=== PATIENT | female | born 2000 | race African-American/Black ===

== ENCOUNTER 2024-12-04 11:35 | Emergency (ER) | payer OTHER, SELFPAY ==
[2024-12-04 12:11] VITALS: BP 115/62; PULSE 72; RESP 18; TEMP 37.2; O2SAT 100; BMI 28.4
--- NOTE | 2024-12-04 12:17 | DI.RAD.S_ITS ---
PROCEDURE: XR CLAVICLE LT INDICATIONS: fall/pain TECHNIQUE: 2 views of the clavicle were acquired. COMPARISON: None. FINDINGS: Bones: No fractures or dislocations. No suspicious bony lesions. Soft tissues: No suspicious soft tissue calcifications. IMPRESSION: No acute left clavicular fracture or dislocation. Dictated by: Roc Mccord M.D. on 12/04/2024 at 12:36 Approved by: Roc Mccord M.D. on 12/04/2024 at 12:38
--- NOTE | 2024-12-04 12:17 | DI.RAD.S_ITS ---
PROCEDURE: XR WRIST LT MIN 3V INDICATIONS: fall/pain TECHNIQUE: A total of 4 views of the wrist were acquired. COMPARISON: None. FINDINGS: Bones: No fractures or dislocations. No suspicious bony lesions. Soft tissues: No suspicious soft tissue calcifications. IMPRESSION: No acute bony abnormality. Dictated by: Jayant Riley M.D. on 12/04/2024 at 12:41 Approved by: Jayant Riley M.D. on 12/04/2024 at 12:41
--- NOTE | 2024-12-04 12:17 | DI.RAD.S_ITS ---
PROCEDURE: XR SHOULDER LT MIN 2V INDICATIONS: fall/pain TECHNIQUE: 3 views of the shoulder were acquired. COMPARISON: None. FINDINGS: Bones: No fractures or dislocations. No suspicious bony lesions. Visualized ribs appear intact. Soft tissues: No suspicious soft tissue calcifications. IMPRESSION: No acute left shoulder fracture or dislocation. Dictated by: Roc Mccord M.D. on 12/04/2024 at 12:38 Approved by: Roc Mccord M.D. on 12/04/2024 at 12:39
--- NOTE | 2024-12-04 14:33 | ED_ITS ---
HPI - Fall General Chief Complaint: Fall Stated Complaint: Fell down a hill Today Time Seen by Provider: 12/04/24 13:34 History of Present Illness HPI Narrative: Ms. Hanson is a pleasant 24-year-old female, active duty [place], who presents to the emergency department for left-sided body pain after she slipped while walking down a hill earlier today. Patient states she was walking [place] a [place] when she slipped falling somewhat backwards onto her left side. There was no head trauma or loss of consciousness. She has had some pain on left side of her body since then, most significantly her left shoulder and collarbone region in addition to her left wrist. As the day went on and she was walking she is noticing some soreness in her left ankle. No visual disturbance, LOC, nausea or vomiting. She is full range of motion and is ambulatory. No medications prior to arrival. Related Data Allergies Allergy/AdvReac Type Severity Reaction Status Date / Time No Known Drug Allergies Allergy Verified 12/04/24 12:11 Review of Systems Review of Systems ROS Unobtainable: All systems reviewed & are unremarkable except as noted in HPI and below Patient History Social History Smoking Status: Current every day smoker Smoking Status: Current every day smoker tobacco type: vaping Exam Narrative Exam Narrative: GENERAL: 24 year old patient appears stated age. Well-developed patient, in no acute distress. HEAD: Atraumatic. Normocephalic. EYES: PERRL. Extraocular motions intact. No scleral icterus. No injection or drainage. ENT: Nose without bleeding, purulent drainage. Throat without erythema, tonsillar hypertrophy or exudate. Airway patent. NECK: Trachea midline. Cervical ROM intact. CARDIOVASCULAR: Regular rate and rhythm. RESPIRATORY: ?Nonlabored respirations. ?Speaking in clear, full sentences. ?Clear to auscultation. Breath sounds equal bilaterally. No wheezes, rales, or rhonchi. ? GASTROINTESTINAL: Abdomen soft, non-tender, nondistended. EXTREMITIES: No edema. Tenderness to palpation of left AC joint region and left posterior scapula. Subjective pain with abduction of left shoulder. Reproducible pain with left empty can test. No focal tenderness to palpation of humerus, elbow, forearm, wrist, snuffbox. Strong radial pulses, sensation intact to light touch in distribution of median, radial, ulnar nerves bilaterally. No tenderness to palpation of left medial or lateral malleolus, no swelling or deformity of the ankle. BACK: Nontender without deformity or crepitance. No flank tenderness. NEURO: AOx3. ?Clear speech. ?Moves all 4 extremities appropriately. SKIN: No rash or erythema of visible areas Initial Vital Signs Initial Vital Signs: Vital Signs Temperature 99.0 F 12/04/24 12:11 Pulse Rate 72 12/04/24 12:11 Respiratory Rate 18 12/04/24 12:11 Blood Pressure 115/62 12/04/24 12:11 Pulse Oximetry 100 12/04/24 12:11 Oxygen Delivery Method Room Air 12/04/24 12:11 Course Orders Ordered: ED Orders 12/04/24 12:17 XR clavicle LT Stat XR shoulder LT min 2V Stat XR wrist LT min 3V Stat Discontinued Medications Acetaminophen (Acetaminophen 325 Mg Tablet) 975 mg PO NOW ONE Stop: 12/04/24 14:49 Last Admin: 12/04/24 15:15 Dose: 975 mg Documented By: EVAN Naproxen (Naproxen 250 Mg Tablet) 500 mg PO NOW ONE Stop: 12/04/24 14:49 Last Admin: 12/04/24 15:15 Dose: 500 mg Documented By: EVAN Vital Signs Vital signs: Vital Signs - 8 hr 12/04/24 12:11 12/04/24 15:33 Temperature 99.0 F Pulse Rate 72 69 Respiratory Rate 18 16 Blood Pressure 115/62 114/60 Pulse Oximetry 100 100 Oxygen Delivery Method Room Air Room Air MDM - Fall Medical Records Attestation: I reviewed the patient's medical records. Imaging Data Left Clavicle X-Ray: Radiologist's Impression: PROCEDURE: XR CLAVICLE LT INDICATIONS: fall/pain TECHNIQUE: 2 views of the clavicle were acquired. COMPARISON: None. FINDINGS: Bones: No fractures or dislocations. No suspicious bony lesions. Soft tissues: No suspicious soft tissue calcifications. IMPRESSION: No acute left clavicular fracture or dislocation. XR Left Shoulder: Radiologist's Impression: PROCEDURE: XR SHOULDER LT MIN 2V INDICATIONS: fall/pain TECHNIQUE: 3 views of the shoulder were acquired. COMPARISON: None. FINDINGS: Bones: No fractures or dislocations. No suspicious bony lesions. Visualized ribs appear intact. Soft tissues: No suspicious soft tissue calcifications. IMPRESSION: No acute left shoulder fracture or dislocation. XR Left Wrist: Radiologist's Impression: PROCEDURE: XR WRIST LT MIN 3V INDICATIONS: fall/pain TECHNIQUE: A total of 4 views of the wrist were acquired. COMPARISON: None. FINDINGS: Bones: No fractures or dislocations. No suspicious bony lesions. Soft tissues: No suspicious soft tissue calcifications. IMPRESSION: No acute bony abnormality. MDM Narrative Medical decision making narrative: 24-year-old female, active duty [place], who presents to the emergency department for left-sided body pain after she slipped while walking down a hill earlier today. Differential diagnosis includes but is not limited to contusion, sprain, strain, left shoulder sprain, left ankle sprain, left wrist sprain, fracture, dislocation, rotator cuff injury, etc. On exam patient is in no acute distress, nontoxic appearing, vital signs within normal limits. She moves all extremities appropriately and all extremities are neurovascularly intact. No head trauma, no spine tenderness. No bruises or lacerations. She primarily has tenderness to palpation of the left AC joint region and pain with abduction of the left shoulder. X-ray clavicle, shoulder, wrist were obtained in triage revealing no acute fractures or dislocations. Minimal ankle pain, no tenderness to palpation and she is ambulatory. She was provided with a left arm sling and a left ankle Benny wrap for comfort, naproxen and Tylenol, and advised to rest, supportive care, follow up with her [place] doctor. We discussed strict ED return precautions and patient verbalized understanding of all information is agreeable to the plan. She is ambulatory and stable for discharge home. Discharge Plan Departure Patient Disposition: Home Clinical Impression: Fall from slipping Qualifiers: Encounter type: initial encounter Qualified Code(s): W01.0XXA - Fall on same level from slipping, tripping and stumbling without subsequent striking against object, initial encounter Left shoulder strain Qualifiers: Encounter type: initial encounter Qualified Code(s): S46.912A - Strain of unspecified muscle, fascia and tendon at shoulder and upper arm level, left arm, initial encounter Left ankle strain Qualifiers: Encounter type: initial encounter Qualified Code(s): S96.912A - Strain of unspecified muscle and tendon at ankle and foot level, left foot, initial encounter Instructions: DI for Shoulder Pain Activity Restrictions/Additional Instructions: Thank you for coming to the emergency department. I am sorry that you had a slip and fall today. X-rays of your left shoulder, wrist, collarbone were all negative for fracture. Your left ankle does not have any signs concerning for fracture at this time. You have been provided with a left arm sling and a left ankle Benny wrap for support. Please rest and follow up with your [place] doctor tomorrow. Please take Ibuprofen (Motrin/Advil) or Acetaminophen (Tylenol) for pain. These are available over the counter. You may take Ibuprofen 600 mg every 8 hours with food for pain. You may also take Acetaminophen 650 mg every 4-6 hours for pain. Do not exceed 3000 mg of Tylenol a day as this can cause liver damage. Do not drink alcohol with either of these medications. Please use RICE therapy for your pain in addition to ibuprofen/acetaminophen. Rest the painful area. Ice the area of pain/swelling for at least 15 minutes, 4x a day. Compress the area of swelling using a brace, wrap, or splint if applied. Elevate the painful or swollen extremity by supporting it above the level of the heart with pillows when sitting or laying. Please follow up with your primary care doctor within the next 2-3 days for ER follow-up. (If you do not have a PCP you can call [phone]. ?to schedule an appointment with an [facility] Primary Care Provider) IF YOU DEVELOP ANY NEW OR WORSENING SYMPTOMS, RETURN TO THE ER! Please read the attached instructions, they highlight more specific treatments and interventions for you at home. Thank you for letting me participate in your care, Marlys Scruggs PA-C Stand Alone Forms: Patient Portal/API/Survey
[2024-12-04] MEDS: NAPROXEN 250 MG TABLET 500 MG PO (15:15)
[2024-12-04] MEDS: ACETAMINOPHEN 325 MG TABLET 975 MG PO (15:15)
[2024-12-04 15:33] VITALS: BP 114/60; PULSE 69; RESP 16; O2SAT 100
== END 2024-12-04 15:36 | disposition home or self-care (01) ==
PROVIDERS: Emergency Provider Physician Assistant
DX: S46.912A Strain of unspecified muscle, fascia and tendon at shoulder and upper arm level, left arm, initial encounter (principal); S96.912A Strain of unspecified muscle and tendon at ankle and foot level, left foot, initial encounter; W01.0XXA Fall on same level from slipping, tripping and stumbling without subsequent striking against object, initial encounter
CPT/HCPCS: 73000; 73030; 73110; 99283